=== PATIENT | male | born 1980 | race American Indian/Alaskan Native ===

== ENCOUNTER 2017-09-10 13:41 | Emergency (ER) | payer OTHER ==
[2017-09-10 13:55] VITALS: BP 145/78
--- NOTE | 2017-09-10 14:14 | Emergency Department Report ---
ED Rash HPI - [facility] Chief Complaint: Urogenital-Male Stated Complaint: PENILE DISCHARGE Time Seen by Provider: 09/10/17 14:12 ED Review of Systems ROS: Stated complaint: PENILE DISCHARGE Other details as noted in HPI ED Past Medical Hx - Past Medical History Hx HIV: Yes (HIV+(undetectable viral load)) - Surgical History Past Surgical History?: No - Social History Smoking Status: Current Every Day Smoker Substance Use Type: Alcohol - Medications Home Medications: Home Medications Medication Instructions Recorded Confirmed Last Taken Type ALPRAZolam [Xanax TAB] 0.5 mg PO TID PRN #14 tab 06/20/14 04/09/16 Unknown Rx Efavirenz/Emtricitab/Tenofovir 1 each PO QHS 06/20/14 04/09/16 06/19/14 History [Atripla Tablet] Cephalexin [Keflex] 500 mg PO Q8HR #21 cap 06/24/15 04/09/16 Unknown Rx HYDROcodone/APAP 10-325 [[place] 1 each PO Q4-6H PRN #20 tablet 06/24/15 04/09/16 Unknown Rx 10/325] metroNIDAZOLE [Flagyl] 500 mg PO Q8HR #21 tablet 06/24/15 04/09/16 Unknown Rx Amoxicillin/K Clav Tab [Augmentin 1 tab PO Q12HR #20 tab 09/30/15 04/09/16 Unknown Rx 875 mg] Fluconazole [Diflucan TAB] 150 mg PO ONCE #3 tablet 09/30/15 04/09/16 Unknown Rx Prednisone [predniSONE 10 mg 10 mg PO .TAPER #1 tab.ds.pk 09/30/15 04/09/16 Unknown Rx (6-Day Pack, 21 Tabs)] Ibuprofen [Motrin 600 MG tab] 600 mg PO Q8H PRN #40 tablet 04/09/16 Unknown Rx traMADol [Ultram] 50 mg PO Q6HR PRN #20 tablet 04/09/16 Unknown Rx Rash Exam - Exam General: Vital signs noted. No distress. Alert and acting appropriately. ED Course Vital Signs 09/10/17 13:52 Temperature 98.4 F Pulse Rate 84 Respiratory 16 Rate Blood Pressure 145/78 O2 Sat by Pulse 96 Oximetry Critical care attestation.: If time is entered above; I have spent that time in minutes in the direct care of this critically ill patient, excluding procedure time. ED Disposition Condition: Stable Referrals: PRIMARY CARE,MD [Primary Care Provider] - 3-5 Days
[2017-09-10 15:16] LABS: Bilirubin,Urine NEG (Negative); Blood,Urine SM (Negative); Ketones,Urine NEG (Negative); Leukocyte Esterase,Urine LG (Negative); Mucus,Urine FEW /HPF; Nitrite,Urine NEG (Negative); Protein,Urine <15 mg/dL mg/dL (Negative)
--- NOTE | 2017-09-10 15:56 | Emergency Department Report ---
ED Male HPI - General Chief complaint: Urogenital-Male Stated complaint: PENILE DISCHARGE Time Seen by Provider: 09/10/17 14:12 Source: patient Mode of arrival: Ambulatory Limitations: No Limitations - History of Present Illness Initial comments: Patient reports that he is having burning with urination and penile discharge for 4 days. Denies any abdominal pain. Denies any back pain. Denies any fever or chills. Denies any nausea or vomiting. Burning pain is for the 10 to penile area. Patient reports that he had unprotected sex. He has concern for STDs and wants to be treated and tested. Denies any sore throat. Denies any rash or lesions to penile area. Patient reports HIV positive with undetected viral load. He is on Atripla for HIV. MD Complaint: penile discharge, dysuria -: days(s) Radiation: none Severity: mild Severity scale (0 -10): 4 Quality: burning (with urinating) Consistency: intermittent Improves with: other (after urinating) Worsens with: urination discharge, dysuria. denies: swelling, mass, rash, urinary retention, blood in urine, fever, nausea/vomiting, incontinence - Related Data Sexually active: Yes (patient is HIV positive and having unprotected sex.) Home Medications Medication Instructions Recorded Confirmed Last Taken Efavirenz/Emtricitab/Tenofovir 1 each PO QHS 06/20/14 04/09/16 06/19/14 [Atripla Tablet] Previous Rx's Medication Instructions Recorded Last Taken Type ALPRAZolam [Xanax TAB] 0.5 mg PO TID PRN #14 tab 06/20/14 Unknown Rx Cephalexin [Keflex] 500 mg PO Q8HR #21 cap 06/24/15 Unknown Rx HYDROcodone/APAP 10-325 [[place] 1 each PO Q4-6H PRN #20 tablet 06/24/15 Unknown Rx 10/325] metroNIDAZOLE [Flagyl] 500 mg PO Q8HR #21 tablet 06/24/15 Unknown Rx Amoxicillin/K Clav Tab [Augmentin 1 tab PO Q12HR #20 tab 09/30/15 Unknown Rx 875 mg] Fluconazole [Diflucan TAB] 150 mg PO ONCE #3 tablet 09/30/15 Unknown Rx Prednisone [predniSONE 10 mg 10 mg PO .TAPER #1 tab.ds.pk 09/30/15 Unknown Rx (6-Day Pack, 21 Tabs)] Ibuprofen [Motrin 600 MG tab] 600 mg PO Q8H PRN #40 tablet 04/09/16 Unknown Rx traMADol [Ultram] 50 mg PO Q6HR PRN #20 tablet 04/09/16 Unknown Rx Ciprofloxacin HCl [Ciprofloxacin 500 mg PO Q12HR 10 Days #20 tab 09/10/17 Unknown Rx TAB] Allergies Allergy/AdvReac Type Severity Reaction Status Date / Time hydrocodone Allergy Itching Verified 09/10/17 13:52 Sulfa (Sulfonamide Allergy Itching Verified 09/30/15 09:08 Antibiotics) ED Review of Systems ROS: Stated complaint: PENILE DISCHARGE Other details as noted in HPI Comment: All other systems reviewed and negative Constitutional: denies: chills, fever ENT: denies: throat pain, congestion Respiratory: no symptoms reported Cardiovascular: denies: chest pain, palpitations, dyspnea on exertion, orthopnea , edema, syncope, paroxysmal nocturnal dyspnea Genitourinary: dysuria, discharge. denies: urgency, frequency, hematuria, testicular pain, testicular mass Musculoskeletal: denies: back pain, joint swelling, arthralgia, myalgia Skin: denies: rash, lesions Neurological: denies: headache ED Past Medical Hx - Past Medical History Previous Medical History?: Yes Hx HIV: Yes (HIV+(undetectable viral load)) - Surgical History Past Surgical History?: No - Family History Family history: no significant - Social History Smoking Status: Current Every Day Smoker Substance Use Type: Alcohol - Medications Home Medications: Home Medications Medication Instructions Recorded Confirmed Last Taken Type ALPRAZolam [Xanax TAB] 0.5 mg PO TID PRN #14 tab 06/20/14 04/09/16 Unknown Rx Efavirenz/Emtricitab/Tenofovir 1 each PO QHS 06/20/14 04/09/16 06/19/14 History [Atripla Tablet] Cephalexin [Keflex] 500 mg PO Q8HR #21 cap 06/24/15 04/09/16 Unknown Rx HYDROcodone/APAP 10-325 [Pierz 1 each PO Q4-6H PRN #20 tablet 06/24/15 04/09/16 Unknown Rx 10/325] metroNIDAZOLE [Flagyl] 500 mg PO Q8HR #21 tablet 06/24/15 04/09/16 Unknown Rx Amoxicillin/K Clav Tab [Augmentin 1 tab PO Q12HR #20 tab 09/30/15 04/09/16 Unknown Rx 875 mg] Fluconazole [Diflucan TAB] 150 mg PO ONCE #3 tablet 09/30/15 04/09/16 Unknown Rx Prednisone [predniSONE 10 mg 10 mg PO .TAPER #1 tab.ds.pk 09/30/15 04/09/16 Unknown Rx (6-Day Pack, 21 Tabs)] Ibuprofen [Motrin 600 MG tab] 600 mg PO Q8H PRN #40 tablet 04/09/16 Unknown Rx traMADol [Ultram] 50 mg PO Q6HR PRN #20 tablet 04/09/16 Unknown Rx Ciprofloxacin HCl [Ciprofloxacin 500 mg PO Q12HR 10 Days #20 tab 09/10/17 Unknown Rx TAB] ED Physical Exam - General Limitations: No Limitations General appearance: alert, in no apparent distress - Head Head exam: Present: atraumatic, normocephalic, normal inspection - Eye Eye exam: Present: normal appearance, PERRL, EOMI Pupils: Present: normal accommodation - ENT ENT exam: Present: normal exam, normal orophraynx, mucous membranes moist - Neck Neck exam: Present: normal inspection, full ROM, other (no C-spine tenderness). Absent: tenderness, meningismus, lymphadenopathy - Respiratory Respiratory exam: Present: normal lung sounds bilaterally. Absent: respiratory distress, chest wall tenderness, accessory muscle use - Cardiovascular Cardiovascular Exam: Present: regular rate, normal rhythm, normal heart sounds. Absent: systolic murmur, diastolic murmur - GI/Abdominal GI/Abdominal exam: Present: soft, normal bowel sounds. Absent: distended, tenderness, guarding, rebound, rigid, organomegaly, mass, bruit, pulsatile mass - exam: Present: normal inspection, urethral discharge. Absent: testicular tenderness, scrotal swelling External exam: Present: normal external exam. Absent: erythema, swelling, lesions, lacerations, ecchymosis, bleeding - Extremities Exam Extremities exam: Present: normal inspection, full ROM, normal capillary refill , other (no clubbing, cyanosis or edema. +2 pulses all extremities. No neurovascular compromise.). Absent: tenderness, pedal edema, joint swelling, calf tenderness - Back Exam Back exam: Present: normal inspection, full ROM, other (H and ambulated without any difficulties). Absent: tenderness, CVA tenderness (R), CVA tenderness (L), muscle spasm, paraspinal tenderness, vertebral tenderness, rash noted - Neurological Exam Neurological exam: Present: alert, oriented X3, normal gait - Psychiatric Psychiatric exam: Present: normal affect, normal mood - Skin Skin exam: Present: warm, dry, intact, normal color. Absent: rash ED Course Vital Signs 09/10/17 13:52 Temperature 98.4 F Pulse Rate 84 Respiratory 16 Rate Blood Pressure 145/78 O2 Sat by Pulse 96 Oximetry - Reevaluation(s) Reevaluation #1: 09/10/17 16:12 Patient given Rocephin 1 g IM to cover acute cystitis and gonorrhea. Azithromycin 1 g by mouth to cover chlamydia and Flagyl 2 g by mouth to cover Trichomonas. Reevaluation #2: 09/10/17 17:08 Patient had no adverse reaction from medication given in emergency room to treat empirically for STD and also urinary tract infection ED Medical Decision Making - Lab Data Lab Results 09/10/17 Range/Units 14:45 Urine Color Yellow (Yellow) Urine Turbidity Clear (Clear) Urine pH 5.0 (5.0-7.0) Ur Specific Alexander 1.025 (1.003-1.030) Urine Protein <15 mg/dl (Negative) mg/dL Urine Glucose (UA) Neg (Negative) mg/dL Urine Ketones Neg (Negative) mg/dL Urine Blood Sm (Negative) Urine Nitrite Neg (Negative) Urine Bilirubin Neg (Negative) Urine Urobilinogen 4.0 (<2.0) mg/dL Ur Leukocyte Esterase Lg (Negative) Urine WBC (Auto) 135.0 H (0.0-6.0) /HPF Urine RBC (Auto) 9.0 (0.0-6.0) /HPF Urine Mucus Few /HPF Urine culture sent and pending Urine gonorrhea and chlamydia sent and pending - Medical Decision Making Ed Course:Seen here reports that he has penile discharge and urinary burning 4 days .He said unprotected sex. Patient concerns for STD. He is HIV positive and report that he is been followed by infectious disease doctor and his last viral load on Atripla was undetected. Patient wants to be treated empirically for STD. Patient urinalysis revealed acute cystitis with hematuria. Patient was treated her with Rocephin 1 g IM in the emergency room to cover gonorrhea and treatment of UTI, Azithromax 1 g by mouth for chlamydia and Flagyl 2000 and thousand milligrams by mouth for Trichomonas. I discussed the patient that he should avoid drinking all clot over the next 7 days as medication given for Trichomonas can have negative interaction with consumer lending manager. I also discussed with him that his gonorrhea and chlamydia patient will take approximately 5 days to be resulted so if he needs to know the results he will need to return to medical records department with his ID to get results. I informed him that he needs to follow up with [facility] in 7-10 days for recheck. I instructed him that he needs to refrain from having [id number] activity and practice safe sex. Refrain from having sexual activity over the next 2 weeks. Patient voiced understanding discharge instruction and treatment plan and discharged home in stable condition with prescription for ciprofloxacin for urinary tract infection. I also instructed him to inform his infectious disease doctor that he was treated empirically for STD and urinary tract infection in emergency room. Critical care attestation.: If time is entered above; I have spent that time in minutes in the direct care of this critically ill patient, excluding procedure time. ED Disposition Clinical Impression: Concern about STD in male without diagnosis, Abnormal penile discharge, Acute cystitis with hematuria, Dysuria, History of HIV infection Disposition: DC-01 TO HOME OR SELFCARE Is pt being admited?: No Does the pt Need Aspirin: No Condition: Stable Instructions: Dysuria (ED), Urinary Tract Infection in Men (ED), Human Immunodeficiency Virus Infection (ED), Safe Sex (ED), Sexually Transmitted Diseases (ED) Additional Instructions: Please refrain from having sexual activity for the next 2 weeks. Follow-up with your primary care physician and infectious disease doctor in 3 days Follow up with [facility] in 7-10 days for repeat STD check You were treated today gonorrhea and chlamydia tests will be back in 5-7 days. You were treated today in emergency room for gonorrhea, chlamydia and Trichomonias. Practice safe sex do not drink alcohol for the next 7 days as this will interact negatively with medication given for STD. Tell partner know that you're treated for STD and hospital today. You also have a urinary tract infection and will be placed on ciprofloxacin antibiotic for 10 days. increase her fluid intake Take medication as prescribed. Prescriptions: Ciprofloxacin HCl [Ciprofloxacin TAB] 500 mg PO Q12HR 10 Days #20 tab Referrals: PRIMARY CARE, [Primary Care Provider] - 09/13/17 Forms: Work/School Release Form(ED)
[2017-09-10] MEDS ORDERED: ZITHROMAX PO ONE (16:10)
[2017-09-10] MEDS ORDERED: FLAGYL PO ONE (16:10)
[2017-09-10] MEDS ORDERED: ROCEPHIN IM STA (16:10)
[2017-09-10] MEDS ORDERED: XYLOCAINE 1% MPF 5 mL INFILTRATI ONE (16:10)
== END 2017-09-10 17:37 | disposition home or self-care (01) ==
LOC: ED 13:41
DX: N30.01 Acute cystitis with hematuria (principal); F17.200 Nicotine dependence, unspecified, uncomplicated; Z88.6 Allergy status to analgesic agent; Z88.2 Allergy status to sulfonamides
CPT/HCPCS: 81001; 87086; 87591; 96372; 99283; J0696

== ENCOUNTER 2018-03-06 23:12 | Emergency (ER) | payer SELFPAY ==
[2018-03-06 23:20] VITALS: BP 148/80
[2018-03-07] MEDS ORDERED: TETRACAINE 0.5% OU ONE (01:44)
[2018-03-07] MEDS ORDERED: FUL-GLO OP ONE (01:49)
--- NOTE | 2018-03-07 01:58 | Emergency Department Report ---
ED Eye Problem HPI - General Chief complaint: Eye Problems Stated complaint: RIGHT EYE PAIN Time Seen by Provider: 03/07/18 00:48 Source: patient Mode of arrival: Ambulatory Limitations: No Limitations - History of Present Illness Initial comments: Patient reports that he has a right eye redness and irritation. He said he had contacts then and he took the contacts out and the redness was therefore to the contacts out reporting watery eye with foreign body sensation and this started yesterday morning. He said eyes is painful to the lites but he does not have any pain at present. Denies any crusting or discharge from eye. Denies any trauma type. Irritation is worse with blinking and when exposed the light better when wearing his sunglasses. Tetanus vaccine is not up-to-date. No medication taken for symptoms. Patient has history of HIV and he said this is under control she takes Atripla and sees infectious disease regularly. He reports his viral load is undetectable. chief complaint: eye pain, eye redness, other (after wearing contacts) Onset/Timin -: days(s) Onset Description: sudden Location: right eye Place: home If Injury: other (contact lenses) Eye Symptoms: redness, pain, foreign body sensation, photophobia, other ( irritation) Severity scale (0 -10): 0 (no pain now old with light exposure) If Pain, Quality: other (rotation) Consistency: intermittent, now resolved Context: contact lens use Associated Symptoms: none Treatments Prior to Arrival: removed contact lens, other (wearing sunglasses) - Related Data Patient Tetanus UTD: No Home Medications Medication Instructions Recorded Confirmed Last Taken Efavirenz/Emtricitab/Tenofovir 1 each PO QHS 06/20/14 04/09/16 06/19/14 [Atripla Tablet] Previous Rx's Medication Instructions Recorded Last Taken Type ALPRAZolam [Xanax TAB] 0.5 mg PO TID PRN #14 tab 06/20/14 Unknown Rx Cephalexin [Keflex] 500 mg PO Q8HR #21 cap 06/24/15 Unknown Rx HYDROcodone/APAP 10-325 [[place] 1 each PO Q4-6H PRN #20 tablet 06/24/15 Unknown Rx 10/325] metroNIDAZOLE [Flagyl] 500 mg PO Q8HR #21 tablet 06/24/15 Unknown Rx Amoxicillin/K Clav Tab [Augmentin 1 tab PO Q12HR #20 tab 09/30/15 Unknown Rx 875 mg] Fluconazole [Diflucan TAB] 150 mg PO ONCE #3 tablet 09/30/15 Unknown Rx Prednisone [predniSONE 10 mg 10 mg PO .TAPER #1 tab.ds.pk 09/30/15 Unknown Rx (6-Day Pack, 21 Tabs)] traMADol [Ultram] 50 mg PO Q6HR PRN #20 tablet 04/09/16 Unknown Rx Ciprofloxacin HCl [Ciprofloxacin 500 mg PO Q12HR 10 Days #20 tab 09/10/17 Unknown Rx TAB] Gentamicin 0.3% Ophth Soln 2 drops OD Q8H 10 Days #1 bottle 03/07/18 Unknown Rx Ibuprofen [Motrin 600 MG tab] 600 mg PO Q8H PRN #12 tablet 03/07/18 Unknown Rx Allergies Allergy/AdvReac Type Severity Reaction Status Date / Time hydrocodone Allergy Itching Verified 09/10/17 13:52 Sulfa (Sulfonamide Allergy Itching Verified 09/30/15 09:08 Antibiotics) ED Review of Systems ROS: Stated complaint: RIGHT EYE PAIN Other details as noted in HPI Constitutional: denies: chills, fever Eyes: other (sensitivity to light. Patient reportedly always for contacts and he doesn't have alternative.). denies: eye pain, eye discharge, vision change ENT: denies: ear pain, throat pain, dental pain, hearing loss, congestion Respiratory: denies: cough, orthopnea, shortness of breath, SOB with exertion, SOB at rest, stridor, wheezing Cardiovascular: denies: chest pain, palpitations Gastrointestinal: denies: abdominal pain, nausea, vomiting, diarrhea, constipation Musculoskeletal: denies: back pain, joint swelling, arthralgia Skin: denies: rash, lesions Neurological: weakness. denies: headache, abnormal gait, vertigo Hematological/Lymphatic: easy bleeding ED Past Medical Hx - Past Medical History Previous Medical History?: Yes Hx HIV: Yes (HIV+(undetectable viral load)) - Surgical History Past Surgical History?: No - Family History Family history: hypertension - Social History Smoking Status: Current Some Day Smoker Substance Use Type: None Other Social History: Lives with partner - Medications Home Medications: Home Medications Medication Instructions Recorded Confirmed Last Taken Type ALPRAZolam [Xanax TAB] 0.5 mg PO TID PRN #14 tab 06/20/14 04/09/16 Unknown Rx Efavirenz/Emtricitab/Tenofovir 1 each PO QHS 06/20/14 04/09/16 06/19/14 History [Atripla Tablet] Cephalexin [Keflex] 500 mg PO Q8HR #21 cap 06/24/15 04/09/16 Unknown Rx HYDROcodone/APAP 10-325 [[place] 1 each PO Q4-6H PRN #20 tablet 06/24/15 04/09/16 Unknown Rx 10/325] metroNIDAZOLE [Flagyl] 500 mg PO Q8HR #21 tablet 06/24/15 04/09/16 Unknown Rx Amoxicillin/K Clav Tab [Augmentin 1 tab PO Q12HR #20 tab 09/30/15 04/09/16 Unknown Rx 875 mg] Fluconazole [Diflucan TAB] 150 mg PO ONCE #3 tablet 09/30/15 04/09/16 Unknown Rx Prednisone [predniSONE 10 mg 10 mg PO .TAPER #1 tab.ds.pk 09/30/15 04/09/16 Unknown Rx (6-Day Pack, 21 Tabs)] traMADol [Ultram] 50 mg PO Q6HR PRN #20 tablet 04/09/16 Unknown Rx Ciprofloxacin HCl [Ciprofloxacin 500 mg PO Q12HR 10 Days #20 tab 09/10/17 Unknown Rx TAB] Gentamicin 0.3% Ophth Soln 2 drops OD Q8H 10 Days #1 bottle 03/07/18 Unknown Rx Ibuprofen [Motrin 600 MG tab] 600 mg PO Q8H PRN #12 tablet 03/07/18 Unknown Rx ED Physical Exam - General Limitations: No Limitations General appearance: alert, in no apparent distress - Head Head exam: Present: atraumatic, normocephalic, normal inspection - Eye Eye exam: Present: normal appearance, PERRL, EOMI, conjunctival injection (right ). Absent: scleral icterus, nystagmus, periorbital swelling, periorbital tenderness Pupils: Present: normal accommodation - Expanded Eye Exam Expanded Eyelids: Normal Inspection: Right (bilateral) Pupils: Regular, Round: Bilateral, Reactive: Bilateral Sclera/Conjunctival: Normal Inspection: Left, Injection: Right Anterior chamber: Normal Inspection: Bilateral Posterior chamber: Normal Inspection: Bilateral Visual acuity (R) = 20/: 200 (20/40 both eyes) Visual acuity (L) = 20/: 40 With correction: No - ENT ENT exam: Present: normal exam, normal orophraynx, mucous membranes moist, TM's normal bilaterally, normal external ear exam - Neck Neck exam: Present: normal inspection, full ROM, other (no C-spine tenderness). Absent: tenderness, lymphadenopathy - Respiratory Respiratory exam: Present: normal lung sounds bilaterally. Absent: respiratory distress, chest wall tenderness - Cardiovascular Cardiovascular Exam: Present: regular rate, normal rhythm, normal heart sounds. Absent: systolic murmur, diastolic murmur - Extremities Exam Extremities exam: Present: normal inspection, full ROM, normal capillary refill , other (no clubbing, cyanosis or edema. Positive pulses all extremities and no neurovascular compromise). Absent: tenderness, pedal edema, joint swelling, calf tenderness - Neurological Exam Neurological exam: Present: alert, oriented X3, normal gait - Psychiatric Psychiatric exam: Present: normal affect, normal mood - Skin Skin exam: Present: warm, dry, intact, normal color. Absent: rash ED Course Vital Signs 03/06/18 23:18 Temperature 98.6 F Pulse Rate 75 Respiratory 18 Rate Blood Pressure 148/80 O2 Sat by Pulse 96 Oximetry - Reevaluation(s) Reevaluation #1: 03/07/18 02:05 Patient and to receive Boostrix 0.5 mL to update tetanus. With lab tests reveal a right corneal abrasion. Patient given Motrin 800 mg by mouth and will be discharged home on antibiotic and referred to ophthalmology Reevaluation #2: 03/07/18 03:01 Right eye pain is better since Motrin and tetracaine ophthalmic drop. Visual acuity right eye is 20/70 status post tetracaine drop. - Procedure Description Procedures done: Procedure right eye: Right eye examined under Padilla lamp. Prior to examination tetracaine ophthalmic 2 drops instilled in right eye, followed by fluorescein stain and with positive fluorescein uptake. Right eye examination was lamp and noted small corneal abrasion to right cornea. Boostrix 0.5 mL given in emergency room. I flushed with eyewash and patient reports that his eye feels better since tetracaine drop. Visual acuity retested to right eye and it went from 20/200 to 20/70 ED Medical Decision Making - Medical Decision Making ED course: This is a 37-year-old male presents to emergency room report that he has right eye irritation since yesterday and that he was wearing contacts me to contact out still with right eye irritation and sensitivity to light. Denies any direct trauma to his eyes. Patient was examined by myself and he is now stable. He has corneal abrasion to right eye. Right eye examined under Padilla lamp. See procedure notes for detail. Patient given explanation for diagnosis and he voiced understanding. A/P 1:) RT Corneal abrasion secondary to contact lenses-right eye examined under Padilla lamp. Tetracaine ophthalmic ointment 2 drops and patient is better he reports after fluorescein. See procedure note for details on I procedure. Visual acuity done. Visual acuity right eye 20/200 pre-tetracaine eyedrop and after tetracaine visual acuity done and it is 20/70 to right eye. Boostrix 0.5 mL injection times one. Plan to discharge home on gentamicin ophthalmic and referred to midlevel provider 2: Right eye irritation-Motrin 800 mg by mouth 1 dose in the emergency room. I do discharged home in Motrin Patient educated on diagnosis, treatment plan, medication, procedure and need to follow up with inventory control specialist. He said he does not wear glasses told him that he needs to visit midlevel provider tomorrow and get appear if glasses. I instructed him that he cannot wear contact lenses for at least 10 days. I instructed him to wear dark glasses when he is exposed to light to prevent sensitivity. Prescription given for Motrin and gentamicin ophthalmic. PT discharged home in stable condition to follow up with midlevel provider tomorrow. Vital signs are stable he's afebrile. Patient said he is feeling better. Discharged home with his partner in stable condition. - Differential Diagnosis corneal abrasion, conjunctivitis, subconjunctival hemorrhage, allergies Critical care attestation.: If time is entered above; I have spent that time in minutes in the direct care of this critically ill patient, excluding procedure time. ED Disposition Clinical Impression: Irritation of right eye Corneal abrasion, right Qualifiers: Encounter type: initial encounter Qualified Code(s): S05.01XA - Injury of conjunctiva and corneal abrasion without foreign body, right eye, initial encounter Disposition: DC-01 TO HOME OR SELFCARE Is pt being admited?: No Does the pt Need Aspirin: No Condition: Stable Instructions: Corneal Abrasion (ED) Additional Instructions: Please avoid wearing contact lenses for at least 10 days and he'll need to follow up with midlevel provider in the morning for eye exam and to get glasses as he said he do not have a glass and he can't see without glasses. Use antibiotic eyedrops as discussed. Were dark glasses when you're outside to decreased sensitivity to eye. Prescriptions: Gentamicin 0.3% Ophth Soln 2 drops OD Q8H 10 Days #1 bottle Ibuprofen [Motrin 600 MG tab] 600 mg PO Q8H PRN #12 tablet PRN Reason: Pain Referrals: PRIMARY CARE, [Primary Care Provider] - 2-3 Days IRVING SIM MD [Staff Physician] - 03/07/18 Forms: Accompanied Note, Work/School Release Form(ED)
[2018-03-07] MEDS ORDERED: BOOSTRIX IM ONE (02:02)
[2018-03-07] MEDS ORDERED: MOTRIN PO ONE (02:03)
== END 2018-03-07 03:19 | disposition home or self-care (01) ==
LOC: ED 23:12
DX: S05.01XA Injury of conjunctiva and corneal abrasion without foreign body, right eye, initial encounter (principal); F17.200 Nicotine dependence, unspecified, uncomplicated; Z88.2 Allergy status to sulfonamides; Z88.6 Allergy status to analgesic agent; X58.XXXA Exposure to other specified factors, initial encounter; Y93.89 Activity, other specified; Y92.89 Other specified places as the place of occurrence of the external cause; Y99.8 Other external cause status
CPT/HCPCS: 90471; 90715; 99283